=== PATIENT | male | born 1940 | race Caucasian/White ===

== ENCOUNTER 2017-08-05 01:45 | Emergency (ER) | payer MEDICARE, OTHER, SELFPAY | END 2017-08-05 05:45 | PROVIDERS: Emergency Provider Emergency Medicine; PCP Family Medicine; Visit Provider Emergency Medicine | DX: I50.9 Heart failure, unspecified (principal) | CPT/HCPCS: 71010; 71045; 80053; 83880; 84484; 85025; 85610; 85730; 93005; 93010; 94640; 96374; 99058; 99285; J1940 ==